=== PATIENT | male | born 1985 | race African-American/Black ===

== ENCOUNTER 2020-02-16 06:18 | Emergency (ER) | payer SELFPAY ==
[~2020-02-16] VITALS: Ht 182 cm; Wt 73.0 kg
--- OUTSIDE RECORDS SUMMARY | 2020-02-16 06:25 | XMS REPORT | Continuity of Care Document ---
Author Organization Unknown Address Unknown Phone Unavailable Allergies Active Description Code Type Severity Reaction Onset Reported/Identified Relationship to Patient Clinical Status Yes NO KNOWN ALLERGIES [id number] Drug Allergy Unknown N/A 01/19/2020 Medications There is no data. Problems Date Dx Coded Attending Type Code Diagnosis Diagnosed By 12/07/2019 Jhoana Michelle F17.21 0 NICOTINE DEPENDENCE, CIGARETTES, UNCOMPLICATED 12/07/2019 VivianaJhoana magaña F20.9 SCHIZOPHRENIA, UNSPECIFIED 12/07/2019 Viviana, Jhoana Olea F31.9 BIPOLAR DISORDER, UNSPECIFIED 12/07/2019 VivianaJhoana R41.82 ALTERED MENTAL STATUS, UNSPECIFIED 12/07/2019 Jhoana Michelle W R52 PAIN, UNSPECIFIED 01/19/2020 Zakia Hicks W F17.210 NICOTINE DEPENDENCE, CIGARETTES, UNCOMPLICATED 01/19/2020 Zakia Hicks W F20.9 SCHIZOPHRENIA, UNSPECIFIED 01/19/2020 Zakia Hicks F31.9 BIPOLAR DISORDER, UNSPECIFIED 01/19/2020 Zakia Hicks W R23.8 OTHER SKIN CHANGES 01/19/2020 Zakia Hicks R41.82 ALTERED MENTAL STATUS, UNSPECIFIED 01/19/2020 Zakia Hicks Z59.0 HOMELESSNESS Procedures There is no data. Results Test Result Range URINALYSIS-CULTURE IF IND - 12/07/19 09: 21 COLLECTION METHOD CLEAN CATCH NRG URINE COLOR YELLOW NRG URINE CLARITY CLEAR NRG URINE SPECIFIC GRAVITY <= 1.005 1.005-1 .035 URINE pH 6.0 5.0-8.0 URINE PROTEIN NEGATIVE Negative URINE GLUCOSE-RANDOM NEGATIVE Negative URINE KETONES NEGATIVE Negative URINE BILIRUBIN NEGATIVE Negative URINE BLOOD TRACE Negative URINE UROBILINOGEN 0.2 E.U./dl 0.2-1.0 URINE NITRITE-REFLEX NEGATIVE Negative URINE LEUKOCYTES-REFLEX NEGATIVE Negati ve DRUG SCREEN RAPID - 12/07/19 09:21 AMP/METHAMP Negative Negative BARBITURATES Negative Negative BENZODIAZEPINES Negative Negative COCAINE Negative Negative METHADONE Negative Negative OPIATES Negative Negative PCP Negative Negative THC Negative Negative CBC with Differential - 12/07/19 09:30 HEMOGLOBIN 15.8 gm/dL 14.0-18.0 HEMATOCRIT 47.1 % 42.0-52.0 WBC 9.4 thou/uL 4.0-11.0 RBC 4.85 mil/uL 4.50-6.00 MCV 97.1 fL 80.0-100.0 MCH 32.6 pg 26.0-34.0 MCHC 33.6 g/dL 28.0-37.0 RDW 13.7 % 10.5-14.5 PLATELET COUNT 207 thou/uL 150-400 MANUAL DIFF NO NRG POLYS 74.3 % 36.0-66.0 LYMPHOCYTES 17.3 % 24.0-44.0 MONOCYTES 7.2 % 1.0-8.0 EOSINOPHILS 0.8 % 0.0-3.0 BASOPHILS 0.4 % 0.0-2.0 ABSOLUTE NEUTROPHILS 7.0 thou/uL 1.4-8.2 BASIC METABOLIC PANEL - 12/07/19 09:30 SODIUM 140 mmol/L 136-145 POTASSIUM 3.9 mmol/L 3.5-5.1 CHLORIDE 103 mmol/L 98-107 CO2 28 mmol/L 21-32 ANION GAP 9 mmol/L 7-16 BUN 15 mg/dL 7-18 CREATININE 1.0 mg/dL 0.7-1.3 GLUCOSE 75 mg/dL 74-106 CALCIUM 9.3 mg/dL 8.5-10.1 Est Glomerular Filtration Rate 104 SeeTable NRG ALCOHOL - 12/07/19 09:30 ALCOHOL 91 mg/dL < 10 Encounters ACCT No. Visit Date/Time Discharge Status Pt. Type Provider Facility Loc./Unit Complaint [id number] 01/19/2020 14:05:00 01/19/2020 17:0 0:00 DIS Emergency Zakia Hicks [facility] ER FOUND DECREASED MENTAL STATU S OUTSIDE CLINIC [id number] 12/07/2019 09:04:00 12/07/2019 14:5 0:00 DIS Emergency Jhoana Michelle [facility] ER FOUND ON SIDE WALK- GEN PAIN
[2020-02-16] MEDS ORDERED: LACTATED RINGERS 1,000 ML IV ONE (06:28)
--- NOTE | 2020-02-16 06:33 | ED General ---
General Chief Complaint: General Problems/Pain Stated Complaint: NOT FEELING WELL Source of Information: Patient (GIVES LIMITED INFORMATION) History of Present Illness Date Seen by Provider: Feb 16, 2020 Time Seen by Provider: 06:23 Initial Comments PT ARRIVES VIA EMS --WALKS INTO ER ON HIS OWN OFF THE AMBULANCE PT IS HOMELESS AND HAS BEEN FOR THE LAST 3 YEARS, STATES HE HAS BEEN IN [place] FOR "A COUPLE OF DAYS" STATES HE WAS IN [place] PRIOR TO COMING HERE CALLED EMS BECAUSE HE IS "JUST TIRED AND NOWHERE TO SLEEP" EMS REPORTS THAT HE SAID HE HAS A HANGOVER NO OTHER SYMPTOMS PT REPORTED TO NURSE THAT HE WAS JUST HERE FOR A SENIOR LIVING--PT WAS ADVISED THAT HOSPITAL IS NOT A SENIOR LIVING AND NO MEN'S SENIOR LIVING IS AVAILABLE IN THIS TOWN PCP: NONE Allergies and Home Medications Allergies Coded Allergies: No Known Drug Allergies (Unverified , 02/16/20) Patient Home Medication List Home Medication List Reviewed: Yes Review of Systems Review of Systems Constitutional: see HPI, malaise, weakness EENTM: no symptoms reported Respiratory: no symptoms reported Cardiovascular: no symptoms reported Gastrointestinal: no symptoms reported Genitourinary: no symptoms reported Musculoskeletal: no symptoms reported Skin: no symptoms reported Psychiatric/Neurological: No Symptoms Reported Hematologic/Lymphatic: No Symptoms Reported Immunological/Allergic: no symptoms reported Past Ovgtaje-Aqtact-Sqarmr Hx Past Med/Social Hx: Reviewed and Corrections made Patient Social History Alcohol Use: Regular Use Recreational Drug Use: No (DENIES) Smoking Status: Current Everyday Smoker (< 1 PPD) Type Used: Cigarettes Past Medical History Surgeries: Yes Appendectomy Respiratory: No Cardiac: No Neurological: No Genitourinary: No Gastrointestinal: No Musculoskeletal: No Endocrine: No HEENT: No Cancer: No Psychosocial: Yes (ALCOHOL ABUSE) Integumentary: No Blood Disorders: No Physical Exam Vital Signs Vital Signs - First Documented 02/16/20 06:28 Temp 36.1 Pulse 76 Resp 16 B/P (MAP) 128/80 (96) Pulse Ox 98 O2 Delivery Room Air Capillary Refill : Height, Weight, BMI Height: '" Weight: lbs. oz. kg; BMI Method: General Appearance: No Apparent Distress, Thin, Other (FLAT AFFECT AND SLOW MENTATION) HEENT: PERRL/EOMI Neck: Normal Inspection Respiratory: Normal Breath Sounds, No Accessory Muscle Use, No Respiratory Distress Cardiovascular: Regular Rate, Rhythm, No Edema, No JVD, No Murmur, Normal Peripheral Pulses Gastrointestinal: Non Tender, Soft Extremity: Normal Inspection Neurologic/Psychiatric: Alert, Oriented x3, No Motor/Sensory Deficits, slack cooper II- XII Norm as Tested Skin: Normal Color (PT IS BLACK), Warm/Dry Progress/Results/Core Measures Suspected Sepsis SIRS Temperature: Pulse: Respiratory Rate: Laboratory Tests 02/16/20 06:28: White Blood Count 12.0H Blood Pressure / Mean: Laboratory Tests 02/16/20 06:28: Creatinine 0.99, Platelet Count 207, Total Bilirubin 0.7 Results/Orders Lab Results Laboratory Tests Test 02/16/20 06:28 02/16/20 06:35 Range/Units White Blood Count 12.0 H 4.3-11.0 10^3/uL Red Blood Count 4.79 4.35-5.85 10^6/uL Hemoglobin 15.5 13.3-17.7 G/DL Hematocrit 45 40-54 % Mean Corpuscular Volume 94 80-99 FL Mean Corpuscular Hemoglobin 32 25-34 PG Mean Corpuscular Hemoglobin Concent 35 32-36 G/DL Red Cell Distribution Width 13.0 10.0-14.5 % Platelet Count 207 130-400 10^3/uL Mean Platelet Volume 9.9 7.4-10.4 FL Neutrophils (%) (Auto) 65 42-75 % Lymphocytes (%) (Auto) 27 12-44 % Monocytes (%) (Auto) 6 0-12 % Eosinophils (%) (Auto) 2 0-10 % Basophils (%) (Auto) 0 0-10 % Neutrophils # (Auto) 7.8 1.8-7.8 X 10^3 Lymphocytes # (Auto) 3.2 1.0-4.0 X 10^3 Monocytes # (Auto) 0.7 0.0-1.0 X 10^3 Eosinophils # (Auto) 0.3 0.0-0.3 10^3/uL Basophils # (Auto) 0.0 0.0-0.1 10^3/uL Sodium Level 140 135-145 MMOL/L Potassium Level 4.3 3.6-5.0 MMOL/L Chloride Level 107 98-107 MMOL/L Carbon Dioxide Level 24 21-32 MMOL/L Anion Gap 9 5-14 MMOL/L Blood Urea Nitrogen 10 7-18 MG/DL Creatinine 0.99 0.60-1.30 MG/DL Estimat Glomerular Filtration Rate > 60 BUN/Creatinine Ratio 10 Glucose Level 75 70-105 MG/DL Calcium Level 9.4 8.5-10.1 MG/DL Corrected Calcium 9.1 8.5-10.1 MG/DL Magnesium Level 2.2 1.6-2.4 MG/DL Total Bilirubin 0.7 0.1-1.0 MG/DL Aspartate Amino Transf (AST/SGOT) 19 5-34 U/L Alanine Aminotransferase (ALT/SGPT) 17 0-55 U/L Alkaline Phosphatase 66 40-136 U/L Total Protein 7.2 6.4-8.2 GM/DL Albumin 4.4 3.2-4.5 GM/DL Amylase Level 45 25-125 U/L Lipase 30 8-78 U/L TSH [place] Testing 0.06 L 0.35-4.94 UIU/ML Acetaminophen Level < 10 L 10-30 UG/ML Serum Alcohol < 10 <10 MG/DL Urine Color YELLOW Urine Clarity CLEAR Urine pH 6.0 5-9 Urine Specific [place] 1.025 H 1.016-1.022 Urine Protein NEGATIVE NEGATIVE Urine Glucose (UA) NEGATIVE NEGATIVE Urine Ketones NEGATIVE NEGATIVE Urine Nitrite NEGATIVE NEGATIVE Urine Bilirubin NEGATIVE NEGATIVE Urine Urobilinogen 0.2 < = 1.0 MG/DL Urine Leukocyte Esterase NEGATIVE NEGATIVE Urine RBC (Auto) TRACE-L NEGATIVE Urine RBC NONE /HPF Urine WBC NONE /HPF Urine Squamous Epithelial Cells NONE /HPF Urine Crystals NONE /LPF Urine Bacteria NEGATIVE /HPF Urine Casts NONE /LPF Urine Mucus NEGATIVE /LPF Urine Culture Indicated NO Urine Opiates Screen NEGATIVE NEGATIVE Urine Oxycodone Screen NEGATIVE NEGATIVE Urine Methadone Screen NEGATIVE NEGATIVE Urine Propoxyphene Screen NEGATIVE NEGATIVE Urine Barbiturates Screen NEGATIVE NEGATIVE Ur Tricyclic Antidepressants Screen NEGATIVE NEGATIVE Urine Phencyclidine Screen NEGATIVE NEGATIVE Urine Amphetamines Screen NEGATIVE NEGATIVE Urine Methamphetamines Screen NEGATIVE NEGATIVE Urine Benzodiazepines Screen NEGATIVE NEGATIVE Urine Cocaine Screen NEGATIVE NEGATIVE Urine Cannabinoids Screen NEGATIVE NEGATIVE My Orders Orders - AMELIA SPEARS DO Ed Iv/Invasive Line Start (02/16/20 06:28) Monitor-Rhythm Ecg Trace Only (02/16/20 06:28) Acetaminophen (02/16/20 06:28) Alcohol (02/16/20 06:28) Amylase (02/16/20 06:28) Cbc With Automated Diff (02/16/20 06:28) Comprehensive Metabolic Panel (02/16/20 06:28) Drug Screen Stat (Urine) (02/16/20 06:28) Lipase (02/16/20 06:28) Magnesium (02/16/20 06:28) Thyroid Analyzer (02/16/20 06:28) Ua Culture If Indicated (02/16/20 06:28) Ed Iv/Invasive Line Start (02/16/20 06:28) Ed Iv/Invasive Line Start (02/16/20 06:28) Ed Iv/Invasive Line Start (02/16/20 06:28) Lactated Ringers (Lr 1000 Ml Iv Solution (02/16/20 06:28) Free T4 (Free Thyroxine) (02/16/20 06:28) Medications Given in ED Current Medications Medications Dose Ordered Sig/Connie Route Start Time Stop Time Status Last Admin Dose Admin Lactated Ringer's 1,000 ml @ 0 mls/hr Q0M ONCE IV 02/16/20 06:28 02/16/20 06:30 DC 02/16/20 06:38 0 MLS/HR Vital Signs/I&O 02/16/20 02/16/20 06:28 07:26 Temp 36.1 Pulse 76 72 Resp 16 16 B/P (MAP) 128/80 (96) 128/77 (96) Pulse Ox 98 98 O2 Delivery Room Air Capillary Refill : Progress Note : Progress Note SLEPT THROUGH ENTIRE ER STAY Departure Impression Primary Impression: Homeless Disposition: 01 HOME, SELF-CARE Condition: Stable Departure-Patient Inst. Referrals: UNKNOWN (PCP) Primary Care Physician Patient Instructions: NO INSTRUCTIONS GIVEN Add. Discharge Instructions: FOLLOW UP WITH OF [place] FOLLOW UP WITH LOCAL HOUSING DEPT OR [facility] IN [place] All discharge instructions reviewed with patient and/or family. Voiced understanding. AMELIA SPEARS DO Feb 16, 2020 06:33
[2020-02-16 06:40] LABS: BASOPHILS % (AUTO) 0 % (0-10); EOSINOPHILS # (AUTO) 0.3 10^3/uL (0.0-0.3); EOSINOPHILS % (AUTO) 2 % (0-10); HEMATOCRIT 45 % (40-54); HEMOGLOBIN 15.5 G/DL (13.3-17.7); LYMPHOCYTES # (AUTO) 3.2 X 10^3 (1.0-4.0); LYMPHOCYTES % (AUTO) 27 % (12-44); MEAN CORPUSCULAR HEMOGLOBIN 32 PG (25-34); MEAN CORPUSCULAR HGB CONC 35 G/DL (32-36); MEAN CORPUSCULAR VOLUME 94 FL (80-99); MEAN PLATELET VOLUME 9.9 FL (7.4-10.4); MONOCYTES # (AUTO) 0.7 X 10^3 (0.0-1.0); MONOCYTES % (AUTO) 6 % (0-12); NEUTROPHILS # (AUTO) 7.8 X 10^3 (1.8-7.8); NEUTROPHILS % (AUTO) 65 % (42-75); PLATELET COUNT 207 10^3/uL (130-400)
[2020-02-16 06:45] LABS: BILIRUBIN,URINE NEGATIVE (NEGATIVE); CLARITY,URINE CLEAR; COLOR,URINE YELLOW; GLUCOSE, URINE (UA) NEGATIVE (NEGATIVE); KETONES,URINE NEGATIVE (NEGATIVE); LEUKOCYTE ESTERASE ,URINE NEGATIVE (NEGATIVE); NITRITE,URINE NEGATIVE (NEGATIVE); PROTEIN,URINE NEGATIVE (NEGATIVE)
[2020-02-16 06:53] LABS: ALBUMIN 4.4 GM/DL (3.2-4.5); CHLORIDE 107 MMOL/L (98-107); POTASSIUM 4.3 MMOL/L (3.6-5.0); SODIUM 140 MMOL/L (135-145)
[2020-02-16 06:55] LABS: AMYLASE 45 U/L (25-125); CALCIUM 9.4 MG/DL (8.5-10.1)
[2020-02-16 06:56] LABS: GLUCOSE 75 MG/DL (70-105); TOTAL PROTEIN 7.2 GM/DL (6.4-8.2)
[2020-02-16 06:57] LABS: CARBON DIOXIDE 24 MMOL/L (21-32)
[2020-02-16 06:57] LABS: BACTERIA,URINE NEGATIVE /HPF
[2020-02-16 06:58] LABS: BILIRUBIN,TOTAL 0.7 MG/DL (0.1-1.0)
[2020-02-16 06:59] LABS: ALKALINE PHOSPHATASE 66 U/L (40-136)
[2020-02-16 07:00] LABS: CREATININE SERUM 0.99 MG/DL (0.60-1.30); GFR ESTIMATED > 60
[2020-02-16 07:01] LABS: BUN/CREATININE RATIO 10
[2020-02-16 07:02] LABS: MAGNESIUM 2.2 MG/DL (1.6-2.4)
[2020-02-16 07:02] LABS: AMPHETAMINE SCREEN, URINE NEGATIVE (NEGATIVE); BARBITURATE SCREEN URINE NEGATIVE (NEGATIVE); BENZODIAZEPINES SCREEN URINE NEGATIVE (NEGATIVE); CANNABINOID SCREEN, URINE NEGATIVE (NEGATIVE); COCAINE SCREEN URINE NEGATIVE (NEGATIVE); METHADONE STAT NEGATIVE (NEGATIVE); METHAMPHETAMINE SCREEN URINE S NEGATIVE (NEGATIVE); OPIATE SCREEN URINE NEGATIVE (NEGATIVE); OXYCODONE STAT NEGATIVE (NEGATIVE); PROPOXYPHENE STAT NEGATIVE (NEGATIVE); TRICYCLIC ANTIDEPRESSANTS SCRE NEGATIVE (NEGATIVE)
[2020-02-16 07:03] LABS: ACETAMINOPHEN < 10 UG/ML (10-30); ALANINE AMINOTRANSFERASE 17 U/L (0-55)
[2020-02-16 07:04] LABS: LIPASE 30 U/L (8-78)
[2020-02-16 07:26] VITALS: BP 128/77
== END 2020-02-16 07:26 | disposition home or self-care (01) ==
LOC: ER 06:21
DX: Z59.0 Homelessness (principal); F17.210 Nicotine dependence, cigarettes, uncomplicated
CPT/HCPCS: 80053; 80306; 81000; 82150; 83690; 83735; 84443; 85025; 93041; 99284; G0480 ×2; 36415; 80320; 80329